=== PATIENT | female | born 1995 | race Caucasian/White ===

== ENCOUNTER 2019-04-22 10:43 | Emergency (ER) | payer OTHER ==
[~2019-04-22] VITALS: Ht 157.5 cm; Wt 70.7 kg
[2019-04-22] MEDS ORDERED: OCUF0.25 OP (13:15)
[2019-04-22 13:19] VITALS: BP 131/82
== END 2019-04-22 13:23 | disposition home or self-care (01) ==
LOC: M ED 10:43
DX: H10.9 Unspecified conjunctivitis (principal); Z88.1 Allergy status to other antibiotic agents